=== PATIENT | female | born 1965 | race Caucasian/White ===

== ENCOUNTER 2017-07-02 10:24 | Emergency (ER) | payer BC ==
[2017-07-02 10:37] VITALS: BP 122/84
[2017-07-02] MEDS ORDERED: LIDOCAINE HCL 20 ML UDC MM ONE (10:54)
[2017-07-02] MEDS ORDERED: IBUPROFEN 400 MG TABLET PO ONE (10:54)
[2017-07-02] MEDS ORDERED: IBUPROFEN 400 MG TABLET ONE (10:56)
--- NOTE | 2017-07-02 10:58 | ERNOTE ---
ENT HPI Presenting Symptoms: dental pain Time Seen by Provider: 07/02/17 10:45 Source: patient Exam Limitations: no limitations - Immun/Allergies/Home Medications Allergies/Adverse Reactions: Allergies Allergy/AdvReac Type Severity Reaction Status Date / Time doxycycline Allergy Severe Shortness Verified 07/02/17 10:37 of Breath Penicillins Allergy Severe Shortness Verified 07/02/17 10:37 of Breath Sulfa (Sulfonamide Allergy Severe Hives Verified 07/02/17 10:37 Antibiotics) Home Medications: HOME MEDICATIONS Gabapentin [Neurontin (Gabapentin)] 300 mg PO TID 11/09/13 [Last Taken 01/29/14 08:00] Lisinopril [Zestril] 10 mg PO DAILY 11/09/13 [Last Taken 01/29/14 08:00] Meloxicam [Mobic] 10 mg PO DAILY 11/09/13 [Last Taken 01/29/14 08:00] Lansoprazole [Prevacid] 30 mg PO DAILY 01/29/14 [Last Taken 01/29/14 08:00] Buspirone HCl 15 mg PO DAILY 07/02/17 [Last Taken Unknown] Cetirizine HCl [Zyrtec] 10 mg PO DAILY 07/02/17 [Last Taken Unknown] Cholecalciferol (Vitamin D3) [Vitamin D3] 4,000 unit PO DAILY 07/02/17 [Last Taken Unknown] Clindamycin HCl [Cleocin HCl] 300 mg PO QID #40 capsule 07/02/17 [Last Taken Unknown] Cyclobenzaprine HCl [Flexeril] 5 mg PO DAILY 07/02/17 [Last Taken Unknown] Dicyclomine HCl [Bentyl] 20 mg PO TID 07/02/17 [Last Taken Unknown] Ferrous Sulfate [Iron] 325 mg PO DAILY 07/02/17 [Last Taken Unknown] buPROPion HCL [Wellbutrin XL] 150 mg PO DAILY 07/02/17 [Last Taken Unknown] - History of Present Illness Narrative: Patient has had a fractured tooth in her right lower jaw for a while but it started to become painful yesterday morning, pain is radiating to her right ear and throat, was unable to get in with dentist and told to come to ER ENT Location: Present: dental Prearrival Treatment: Present: over the counter meds Associated Symptoms - ENT: Denies: fever, cough, voice change, jaw swelling Prior Treament: Denies: recently seen, similar symptoms before Review of Systems - Review of Systems Constitutional: Absent: recent illness, fever ENT: Present: See HPI, ear pain, sore throat. Absent: nose pain, nose congestion Respiratory: Absent: shortness of breath, cough Cardiology: Absent: chest pain Gastrointestinal/Abdominal: Present: nausea. Absent: vomiting, diarrhea, abdominal pain Genitourinary: Present: no symptoms reported Skin: Absent: rash Neurological: Absent: headache - Patient's Past Medical History Patient History - Medical: Other Patient History - Cardiac/Respiratory: Hypertension Patient History - Cancer: No Hx of Cancer Patient History - Surgical Procedures: Back Surgery, Cholecystectomy, Patient History - Other: None - Social History Living Situations: home Abuse History: No History of abuse Psych History: Hx of Depression Smoking Status: Current every day smoker Alcohol Use: none Drug Use: none Physical Exam - Physical Exam General Appearance: Present: wd/wn, alert, no apparent distress, anxious Eye Exam: Normal inspection: bilateral Ears, Nose, Throat: Present: normal except - - fractured molar right lower posterior jaw, surroung gum swollen and tender, normal pharynx Neck: Absent: lymphadenopathy (R) Respiratory: Present: no respiratory distress, normal breath sounds, no accessory muscle use, lungs clear Cardiovascular/Chest: Present: regular rate, rhythm, no murmur Neurological Exam: Present: alert, oriented, normal mood/affect Skin Exam: Present: normal color, warm/dry ED Progress - Vital Signs Patient's Vital Signs:: I have reviewed the patient's vital signs. Vital Signs: Vital Signs 07/02/17 10:29 Temperature 36.2 C L Pulse Rate 86 Respiratory 12 Rate Blood Pressure 122/84 O2 Sat by Pulse 97 Oximetry - Progress/Reassessment Chief Complaint: Dental Problem Departure Clinical Impression: Pain, dental - Departure Disposition: Home self-care Condition: Good Instructions: Dental Abscess, [id number], Form - Excuse from Work, School, or Physical Activity Additional Instructions: make sure to follow up with a dentist JR Prescriptions: Clindamycin HCl [Cleocin HCl] 300 mg PO QID #40 capsule
== END 2017-07-02 11:03 | disposition home or self-care (01) ==
LOC: ER 10:24
DX: K08.89 Other specified disorders of teeth and supporting structures (principal); I10 Essential (primary) hypertension; F17.200 Nicotine dependence, unspecified, uncomplicated